=== PATIENT | male | born 1930 | race Caucasian/White ===

== ENCOUNTER 2016-09-02 17:27 | Observation (INO) | payer MEDICARE, BC ==
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
[2016-09-02] MEDS ORDERED: BABY ASPIRIN 81 MG CHEW PO ONE ×2 (18:09→18:23)
[2016-09-02] MEDS ORDERED: BABY ASPIRIN 81 MG CHEW ONE (18:15)
[2016-09-02 18:38] LABS: BASOPHIL % 0.2 % (0.0-0.4); Eosinophil % 0.1 % (0.00-5.0); Granulocytes % 88.4 % (36.0-66.0); Lymphocytes % 5.7 % (24.0-44.0); Mean Corpuscular Hemoglobin 32.7 pg (26-32); Mean Platelet Volume 9.4 fl (6-9.5); Monocytes % 5.6 % (0.0-12.0); Platelet Count 239 K/mm3 (150-450); Red Cell Distribution Width 12.9 % (11.5-14.0); White Blood Count 11.4 K/mm3 (4.0-10.5)
[2016-09-02 18:40] LABS: ANION GAP 11.3 MEQ/L (5-15); BLOOD UREA NITROGEN 19 mg/dL (9-20); CHLORIDE 106 mEq/L (98-107); Glucose 139 MG/DL (70-110); Potassium 3.5 mEq/L (3.5-5.1); SODIUM 142 mEq/L (136-145)
[2016-09-03] MEDS: TYLENOL 325 MG PO PRN ×2 (08:41→12:26)
--- NOTE | 2016-09-03 08:45 | XRAY ---
Indication: Amnesia. Multiple contiguous axial images obtained through the head without contrast. Comparison: October 29, 2013 Stable age-appropriate global atrophy and minimal periventricular degenerative micro-ischemia bilaterally. No acute intracranial hemorrhage, abnormal extra-axial fluid collection, or mass effect. Fourth ventricle is midline without hydrocephalus. Bony calvarium intact. Visualized paranasal sinuses and mastoid air cells are pneumatized and clear. Impression: Stable nonacute senile brain. Comment: Preliminary interpretation was made by [facility]. No discrepancy. CT DI is 68.15
--- NOTE | 2016-09-03 08:47 | XRAY ---
Indication: Syncope. Comparison: October 29, 2013 PA/lateral chest remains hyperinflated. Minimal left costophrenic angle atelectasis/scarring. No focal infiltrate, consolidation, or large effusion. Heart and mediastinal structures stable and within normal limits. Bony thorax intact again with mild osteopenia and degenerative changes. Impression: Nonacute hyperinflated chest with chronic features.
[2016-09-03] MEDS ORDERED: Sodium Chloride 0.9% 10 ML FLUSH Syringe IV PRN (09:49)
[2016-09-03] MEDS ORDERED: FLUZONE HIGH-DOSE 2016-17 SYR IM ONE (10:00)
--- NOTE | 2016-09-03 10:21 | XRAY ---
Indication: Syncope. Two-dimensional sonogram and color Doppler imaging of the carotid arteries of the neck performed. Comparison: October 30, 2013 Examination of the right carotid circulation demonstrates stable minimal heterogeneous plaquing at the level of the bulb extending into the origin of the internal and external carotid arteries. There is now mild focal calcified plaquing in the distal internal carotid artery. PSV of the CCA is 73 cm/s. PSV of the ICA is 70 cm/s. ICA/CCA ratio is 1.0. Normal antegrade vertebral artery flow. Examination of the left carotid circulation demonstrates stable minimal heterogeneous plaquing at the level of the bulb extending into the origin of the internal and external carotid arteries. Stable focal heterogeneous plaquing in the distal internal carotid artery. PSV of the CCA is 100 cm/s. PSV of the ICA is 77 cm/s. ICA/CCA ratio 0.8. Normal antegrade vertebral artery flow. Impression: Again scattered plaquing in both carotid circulation as detailed similar in appearance to the previous study. Velocity measurements and ratios again negative for hemodynamically significant flow-limiting stenosis.
[2016-09-03 11:42] VITALS: BP 131/75; PULSE 67; O2SAT 95
[2016-09-03] MEDS ORDERED: MOTRIN 400 MG PO PRN (12:27)
--- NOTE | 2016-09-03 13:52 | PCM.DCORD ---
- Discharge Discharge Date: 09/03/16 Condition: Good Medications: Home Medications Finasteride 5 mg [Proscar 5 MG] 5 mg PO DAILY 10/29/13 [Confirmed 09/02/16 ] Hydrochlorothiazide 25 mg [hydroDIURIL 25 MG] 25 mg PO DAILY 10/29/13 [ Confirmed 09/02/16] Active Inpatient Medications Acetaminophen (Tylenol 325 Mg) 650 mg PO Q4H PRN PRN PRN Reason: PAIN AND/OR FEVER Stop: 10/02/16 20:29 Last Admin: 09/03/16 12:26 Dose: 650 mg Ibuprofen (Motrin 400 Mg) 400 mg PO QID PRN PRN PRN Reason: PAIN Stop: 10/03/16 12:26 Sodium Chloride (Sodium Chloride 0.9% 10 Ml Flush Syringe) 10 ml IV Q8HT THOMPSON Stop: 10/03/16 13:59 Sodium Chloride (Sodium Chloride 0.9% 10 Ml Flush Syringe) 10 ml IV PRN PRN PRN Reason: FLUSH Stop: 10/03/16 09:48 Follow up with: SUSAN BRITTON [Primary Care Provider] - 09/10/16 1:30 pm
[2016-09-03] MEDS ORDERED: Sodium Chloride 0.9% 10 ML FLUSH Syringe IV SCH (14:00)
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
== END 2016-09-03 14:35 | disposition home or self-care (01) ==
LOC: ED 17:27 → MED SURG 20:29
PROVIDERS: ADMIT Family Medicine; ATTEND Family Medicine
DX: R55 Syncope and collapse (principal)
CPT/HCPCS: 36000; 36415; 70450; 71020; 80048; 81002; 84484; 85025; 93005; 93268; 93880; 96360; 99284; G0378

== ENCOUNTER 2020-05-15 12:51 | Emergency (ER) | payer MEDICARE, BC ==
--- NOTE | 2020-05-15 13:00 | ERPHSYRPT ---
- History of Present Illness Time Seen by Provider: 05/15/20 13:00 Source: patient Exam Limitations: no limitations Physician History: This is an 89-year-old white male with a history of hypertension presents with fever, runny nose, nausea and mild cough. He has not been exposed to anyone with known COVID 19+ test results. Symptoms began today. Fever Severity: moderate Associated Symptoms: cough, nausea/vomiting (Nausea but no vomiting), rhinorrhea Allergies/Adverse Reactions: No Known Drug Allergies Allergy (Verified 09/02/16 17:50) Home Medications: Hydrochlorothiazide 25 mg [hydroDIURIL 25 MG] 25 mg PO DAILY 10/29/13 [History] Aspirin [Aspirin EC] 81 mg PO DAILY 05/15/20 [History] Donepezil HCl 10 mg PO DAILY 05/15/20 [History] Finasteride 1 tab PO DAILY 05/15/20 [History] Hx Tetanus, Diphtheria Vaccination/Date Given: Yes Hx Influenza Vaccination/Date Given: No Hx Pneumococcal Vaccination/Date Given: No Travel Risk - International Travel Have you traveled outside of the country in past 3 weeks: No - Coronavirus Screening Are you exhibiting any of the following symptoms?: No Close contact with a COVID-19 positive Pt in past 14-21 Days: No - Review of Systems Constitutional: Fever Eyes: No Symptoms Ears, Nose, & Throat: Nose Discharge (Ear) Respiratory: Cough (Old) Cardiac: No Symptoms, No Chest Pain Abdominal/Gastrointestinal: Nausea, No Abdominal Pain, No Vomiting, No Diarrhea Genitourinary Symptoms: No Symptoms Musculoskeletal: No Symptoms Skin: No Symptoms Neurological: No Symptoms Psychological: No Symptoms Endocrine: No Symptoms Hematologic/Lymphatic: No Symptoms Immunological/Allergic: No Symptoms All Other Systems: Reviewed and Negative - Past Medical History Pertinent Past Medical History: Yes Neurological History: No Pertinent History ENT History: No Pertinent History Cardiac History: No Pertinent History Respiratory History: No Pertinent History Endocrine Medical History: No Pertinent History Musculoskeletal History: No Pertinent History GI Medical History: No Pertinent History History: Bladder Cancer Psycho-Social History: No Pertinent History Male Reproductive Disorders: Prostate Problems Other Medical History: SKIN CA - Past Surgical History Past Surgical History: No Neuro Surgical History: No Pertinent History Cardiac: No Pertinent History Respiratory: No Pertinent History Gastrointestinal: No Pertinent History Genitourinary: No Pertinent History Musculoskeletal: No Pertinent History Male Surgical History: No Pertinent History Other Surgical History: 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 ET SEVERAL OTHER PLACES THROUGHOUT THE YEARS - Social History Smoking Status: Former smoker Exposure to second hand smoke: No Drug Use: none Patient Lives Alone: No - Nursing Vital Signs Nursing Vital Signs: Initial Vital Signs Temperature 100.8 F 05/15/20 12:59 Pulse Rate 111 H 05/15/20 12:59 Respiratory Rate 38 H 05/15/20 12:59 Blood Pressure 110/67 05/15/20 12:59 O2 Sat by Pulse Oximetry 90 L 05/15/20 12:59 Pain Scale Pain Intensity 0 - Physical Exam General Appearance: no apparent distress, alert Eye Exam: PERRL/EOMI, eyes nml inspection ENT Exam: normal ENT inspection, no apparent trauma, hearing grossly normal, TMs normal, pharynx normal Neck Exam: normal inspection, non-tender, supple, full range of motion, trachea midline Respiratory Exam: normal breath sounds, chest non-tender, lungs clear, no respiratory distress, no accessory muscle use Cardiovascular/Chest Exam: tachycardia Gastrointestinal/Abdominal Exam: soft, non tender, no distention, no mass, no guarding Rectal Exam: not done Extremity Exam: non-tender, normal range of motion, normal inspection, no pedal edema, pelvis stable Neurologic Exam: alert, oriented x 3, cooperative, media reporter II-XII nml as tested, normal mood/affect, nml cerebellar function, nml station & gait, sensation nml Skin Exam: normal color, warm, dry Lymphatic: No adenopathy SpO2 Interpretation: normal O2 Delivery: Room Air - Course Nursing assessment & vital signs reviewed: Yes EKG Interpreted by Me: RATE ([id number]), Sinus Rhythm, NORMAL AXIS, NORMAL INTERVALS, NORMAL QRS, Non-specific ST Changes Ordered Tests: Active Orders 24 hr Category Date Time Status Manager Route STAT Care 05/15/20 13:14 Active EKG-ER Only STAT Care 05/15/20 13:13 Active IV Insertion STAT Care 05/15/20 13:13 Active Isolation, Initiate & Maintain STAT Care 05/15/20 13:16 Active CHEST 1 VIEW (PORTABLE) Stat Exams 05/15/20 13:14 Completed BLOOD CULTURE Stat Lab 05/15/20 13:50 Received CBC W DIFF Stat Lab 05/15/20 13:15 Completed CMP Stat Lab 05/15/20 13:15 Completed Ferritin Stat Lab 05/15/20 13:15 Completed LDH-LACTATE DEHYDROGENASE Stat Lab 05/15/20 13:15 Completed Lactic Acid Stat Lab 05/15/20 13:30 Completed Lactic Acid Stat Lab 05/15/20 15:33 Completed [place] Screen Stat Lab 05/15/20 13:15 Completed UA W/RFX UR CULTURE Stat Lab 05/15/20 14:02 Completed Medication Summary Generic Name Dose Route Start Last Admin Trade Name Freq PRN Reason Stop Dose Admin Sodium Chloride 1,000 mls @ 50 mls/hr 05/15/20 13:15 05/15/20 14:40 Sodium Chloride 0.9% 1000 Ml IV 06/14/20 13:14 50 mls/hr .Q20H [place] Administration Discontinued Medications Generic Name Dose Route Start Last Admin Trade Name Freq PRN Reason Stop Dose Admin Acetaminophen 650 mg 05/15/20 13:13 05/15/20 13:24 Tylenol 325 Mg PO 05/15/20 13:14 650 mg STAT STA Administration Acetaminophen Confirm 05/15/20 13:20 Tylenol 325 Mg Administered 05/15/20 13:21 Dose 650 mg .ROUTE .STK-MED ONE Sodium Chloride 500 mls @ 500 mls/hr 05/15/20 13:15 05/15/20 14:28 Sodium Chloride 0.9% 500 Ml IV 05/15/20 14:14 Infused .Q1H ONE Infusion Sodium Chloride Confirm 05/15/20 13:20 Sodium Chloride 0.9% 500 Ml Administered 05/15/20 13:21 Dose 500 mls @ ud IV .STK-MED ONE Ondansetron HCl 4 mg 05/15/20 13:13 05/15/20 13:24 Zofran 4 Mg/2 Ml Vial IV 05/15/20 13:14 4 mg STAT STA Administration Ondansetron HCl Confirm 05/15/20 13:20 Zofran 4 Mg/2 Ml Vial Administered 05/15/20 13:21 Dose 4 mg .ROUTE .STK-MED ONE Lab/Rad Data: Laboratory Result Diagrams 05/15/20 13:15 05/15/20 13:15 Laboratory Results 05/15/20 05/15/20 05/15/20 Range/Units 15:33 14:02 13:50 WBC (4.0-10.5) K/mm3 RBC (4.1-5.6) M/mm3 Hgb (12.5-18.0) gm/dl Hct (42-50) % MCV (78-100) fl MCH (26-32) pg MCHC (32-36) g/dl RDW (11.5-14.0) % Plt Count (150-450) K/mm3 MPV (7.5-11.0) fl Gran % (36.0-66.0) % Eos # (Auto) (0-0.5) Absolute Lymphs (auto) (1.0-4.6) Absolute Monos (auto) (0.0-1.3) Lymphocytes % (24.0-44.0) % Monocytes % (0.0-12.0) % Eosinophils % (0.00-5.0) % Basophils % (0.0-0.4) % Absolute Granulocytes (1.4-6.9) Basophils # (0-0.4) Sodium (137-145) mmol/L Potassium (3.5-5.1) mmol/L Chloride (98-107) mmol/L Carbon Dioxide (22-30) mmol/L Anion Gap (5-15) MEQ/L BUN (9-20) mg/dL Creatinine (0.66-1.25) mg/dL Estimated GFR ML/MIN Glucose (74-106) mg/dL Lactic Acid 1.0 (0.4-2.0) Calcium (8.4-10.2) mg/dL Ferritin (17.9-464) ng/mL Total Bilirubin (0.2-1.3) mg/dL AST (17-59) U/L ALT (0-50) U/L Alkaline Phosphatase (38-126) U/L Lactate Dehydrogenase (120-246) U/L Serum Total Protein (6.3-8.2) g/dL Albumin (3.5-5.0) g/dL Urine Color YELLOW (YELLOW) Urine Appearance CLEAR (CLEAR) Urine pH 5.0 (5-6) Ur Specific [place] 1.012 (1.005-1.025) Urine Protein NEGATIVE (Negative) Urine Ketones NEGATIVE (NEGATIVE) Urine Blood NEGATIVE (0-5) Jamir/ul Urine Nitrite NEGATIVE (NEGATIVE) Urine Bilirubin NEGATIVE (NEGATIVE) Urine Urobilinogen NEGATIVE (0-1) mg/dL Ur Leukocyte Esterase NEGATIVE (NEGATIVE) Urine WBC (Auto) NONE (0-5) /HPF Urine RBC (Auto) 0-2 (0-2) /HPF U Epithel Cells (Auto) NONE (FEW) /HPF Urine Bacteria (Auto) NONE (NEGATIVE) /HPF Urine Mucus (Auto) SLIGHT (NEGATIVE) /HPF Urine Culture Reflexed NO (NO) Urine Glucose NEGATIVE (NEGATIVE) mg/dL Monoscreen (Negative) Influenza Type A Ag NEGATIVE (NEGATIVE) Influenza Type B Ag NEGATIVE (NEGATIVE) RSV (PCR) NEGATIVE (Negative) Group A Strep Antibody NOT DETECTED (NEGATIVE) 05/15/20 05/15/20 05/15/20 Range/Units 13:30 13:15 13:15 WBC (4.0-10.5) K/mm3 RBC (4.1-5.6) M/mm3 Hgb (12.5-18.0) gm/dl Hct (42-50) % MCV (78-100) fl MCH (26-32) pg MCHC (32-36) g/dl RDW (11.5-14.0) % Plt Count (150-450) K/mm3 MPV (7.5-11.0) fl Gran % (36.0-66.0) % Eos # (Auto) (0-0.5) Absolute Lymphs (auto) (1.0-4.6) Absolute Monos (auto) (0.0-1.3) Lymphocytes % (24.0-44.0) % Monocytes % (0.0-12.0) % Eosinophils % (0.00-5.0) % Basophils % (0.0-0.4) % Absolute Granulocytes (1.4-6.9) Basophils # (0-0.4) Sodium (137-145) mmol/L Potassium (3.5-5.1) mmol/L Chloride (98-107) mmol/L Carbon Dioxide (22-30) mmol/L Anion Gap (5-15) MEQ/L BUN (9-20) mg/dL Creatinine (0.66-1.25) mg/dL Estimated GFR ML/MIN Glucose (74-106) mg/dL Lactic Acid 2.6 H (0.4-2.0) Calcium (8.4-10.2) mg/dL Ferritin 22.0 (17.9-464) ng/mL Total Bilirubin (0.2-1.3) mg/dL AST (17-59) U/L ALT (0-50) U/L Alkaline Phosphatase (38-126) U/L Lactate Dehydrogenase (120-246) U/L Serum Total Protein (6.3-8.2) g/dL Albumin (3.5-5.0) g/dL Urine Color (YELLOW) Urine Appearance (CLEAR) Urine pH (5-6) Ur Specific [place] (1.005-1.025) Urine Protein (Negative) Urine Ketones (NEGATIVE) Urine Blood (0-5) Jamir/ul Urine Nitrite (NEGATIVE) Urine Bilirubin (NEGATIVE) Urine Urobilinogen (0-1) mg/dL Ur Leukocyte Esterase (NEGATIVE) Urine WBC (Auto) (0-5) /HPF Urine RBC (Auto) (0-2) /HPF U Epithel Cells (Auto) (FEW) /HPF Urine Bacteria (Auto) (NEGATIVE) /HPF Urine Mucus (Auto) (NEGATIVE) /HPF Urine Culture Reflexed (NO) Urine Glucose (NEGATIVE) mg/dL Monoscreen NEGATIVE (Negative) Influenza Type A Ag (NEGATIVE) Influenza Type B Ag (NEGATIVE) RSV (PCR) (Negative) Group A Strep Antibody (NEGATIVE) 05/15/20 05/15/20 05/15/20 Range/Units 13:15 13:15 13:15 WBC 5.2 (4.0-10.5) K/mm3 RBC 4.00 L (4.1-5.6) M/mm3 Hgb 13.5 (12.5-18.0) gm/dl Hct 40.3 L (42-50) % MCV 100.8 H (78-100) fl MCH 33.8 H (26-32) pg MCHC 33.5 (32-36) g/dl RDW 13.0 (11.5-14.0) % Plt Count 240 (150-450) K/mm3 MPV 9.1 (7.5-11.0) fl Gran % 87.9 H (36.0-66.0) % Eos # (Auto) 0.03 (0-0.5) Absolute Lymphs (auto) 0.48 L (1.0-4.6) Absolute Monos (auto) 0.11 (0.0-1.3) Lymphocytes % 9.2 L (24.0-44.0) % Monocytes % 2.1 (0.0-12.0) % Eosinophils % 0.6 (0.00-5.0) % Basophils % 0.2 (0.0-0.4) % Absolute Granulocytes 4.56 (1.4-6.9) Basophils # 0.01 (0-0.4) Sodium 136 L (137-145) mmol/L Potassium 3.8 (3.5-5.1) mmol/L Chloride 104 (98-107) mmol/L Carbon Dioxide 22 (22-30) mmol/L Anion Gap 13.3 (5-15) MEQ/L BUN 22 H (9-20) mg/dL Creatinine 1.20 (0.66-1.25) mg/dL Estimated GFR > 60.0 ML/MIN Glucose 105 (74-106) mg/dL Lactic Acid (0.4-2.0) Calcium 9.4 (8.4-10.2) mg/dL Ferritin (17.9-464) ng/mL Total Bilirubin 0.90 (0.2-1.3) mg/dL AST 31 (17-59) U/L ALT 12 (0-50) U/L Alkaline Phosphatase 59 (38-126) U/L Lactate Dehydrogenase 205 (120-246) U/L Serum Total Protein 7.5 (6.3-8.2) g/dL Albumin 4.3 (3.5-5.0) g/dL Urine Color (YELLOW) Urine Appearance (CLEAR) Urine pH (5-6) Ur Specific [place] (1.005-1.025) Urine Protein (Negative) Urine Ketones (NEGATIVE) Urine Blood (0-5) Jamir/ul Urine Nitrite (NEGATIVE) Urine Bilirubin (NEGATIVE) Urine Urobilinogen (0-1) mg/dL Ur Leukocyte Esterase (NEGATIVE) Urine WBC (Auto) (0-5) /HPF Urine RBC (Auto) (0-2) /HPF U Epithel Cells (Auto) (FEW) /HPF Urine Bacteria (Auto) (NEGATIVE) /HPF Urine Mucus (Auto) (NEGATIVE) /HPF Urine Culture Reflexed (NO) Urine Glucose (NEGATIVE) mg/dL Monoscreen (Negative) Influenza Type A Ag (NEGATIVE) Influenza Type B Ag (NEGATIVE) RSV (PCR) (Negative) Group A Strep Antibody (NEGATIVE) - Progress Progress: improved, re-examined Progress Note: 05/15/20 16:50 Chest x-ray shows no acute pulmonary process. 05/15/20 17:00 Patient states that he feels great. He has no chest pain he is not short of breath. He wants to go home. His work-up does not show anything acute at this time other than his fever was elevated and his room air oxygenation was 93 at the time of discharge. His temperature was improved down to 99 F. Counseled pt/family regarding: lab results, diagnosis, need for follow-up, rad results - Departure Departure Disposition: Home Clinical Impression: Fever, Rhinorrhea Condition: Stable Critical Care Time: No Referrals: SUSAN BRITTON [Primary Care Provider] - Additional Instructions: Drink plenty of fluids. Use Tylenol and ibuprofen if not allergic or contraindicated for fever control. Return to the emergency department if your symptoms worsen. Follow-up with your primary care physician on an as-needed basis. Quarantine yourself until the results of the COVID-19 test return
[2020-05-15] MEDS ORDERED: Zofran 4 MG/2 ML VIAL IV STA (13:13)
[2020-05-15] MEDS ORDERED: TYLENOL 325 MG PO STA (13:13)
[2020-05-15] MEDS ORDERED: Sodium Chloride 0.9% 500 ML 500 ML IV ONE ×2 (13:15→13:20)
[2020-05-15] MEDS ORDERED: Sodium Chloride 0.9% 1000 ML 1,000 ML IV SCH (13:15)
[2020-05-15] MEDS ORDERED: Zofran 4 MG/2 ML VIAL ONE (13:20)
[2020-05-15] MEDS ORDERED: TYLENOL 325 MG ONE (13:20)
--- NOTE | 2020-05-15 13:52 | XRAY ---
Indication: Fever, chills, and shakes. Comparison: September 02, 2016. Portable apical lordotic chest remains hyperinflated and clear. Heart and mediastinal structures within normal limits. Descending aorta remains tortuous. Bony thorax intact again with mild osteopenia and degenerative changes. Impression: Continued nonacute hyperinflated chest with chronic features.
[2020-05-15 14:07] LABS: Absolute Neutrophil Ct (ANC) 4.56 (1.4-6.9); BASOPHIL % 0.2 % (0.0-0.4); Basophil (Absolute #) 0.01 (0-0.4); Eosinophil % 0.6 % (0.00-5.0); Eosinophil (Absolute #) 0.03 (0-0.5); Hematocrit 40.3 % (42-50); Hemoglobin 13.5 gm/dl (12.5-18.0); Lymphocyte (Absolute #) 0.48 (1.0-4.6); Lymphocytes % 9.2 % (24.0-44.0); Mean Cell Volume 100.8 fl (78-100); Mean Corpuscular Hemoglobin 33.8 pg (26-32); Mean Corpuscular Hgb Concent. 33.5 g/dl (32-36); Mean Platelet Volume 9.1 fl (7.5-11.0); Monocyte (Absolute #) 0.11 (0.0-1.3); Monocytes % 2.1 % (0.0-12.0); Neutrophil % 87.9 % (36.0-66.0); Platelet Count 240 K/mm3 (150-450); White Blood Count 5.2 K/mm3 (4.0-10.5)
[2020-05-15 14:22] LABS: ALBUMIN 4.3 g/dL (3.5-5.0); ALKALINE PHOSPHATASE 59 U/L (38-126); ANION GAP 13.3 MEQ/L (5-15); BLOOD UREA NITROGEN 22 mg/dL (9-20); CHLORIDE 104 mmol/L (98-107); Calcium 9.4 mg/dL (8.4-10.2); Carbon Dioxide 22 mmol/L (22-30); EST GLOMERULAR FILTRATION RATE > 60.0 ML/MIN; Glucose 105 mg/dL (74-106); Potassium 3.8 mmol/L (3.5-5.1); SGOT/AST 31 U/L (17-59); SGPT/ALT 12 U/L (0-50); SODIUM 136 mmol/L (137-145); Total Protein 7.5 g/dL (6.3-8.2)
[2020-05-15 14:29] LABS: Appearance CLEAR (CLEAR); Bilirubin NEGATIVE (NEGATIVE); Blood NEGATIVE Ery/ul (0-5); Glucose NEGATIVE (NEGATIVE); Ketones NEGATIVE (NEGATIVE); Leukocyte Esterase NEGATIVE (NEGATIVE); Mucus SLIGHT /HPF (NEGATIVE); Nitrite NEGATIVE (NEGATIVE); Protein,Urine Dip NEGATIVE (Negative); RBC 0-2 /HPF (0-2); Specific Gravity 1.012 (1.005-1.025); Urobilinogen NEGATIVE mg/dL (0-1)
[2020-05-15 14:33] LABS: Group A Strep NOT DETECTED (NEGATIVE)
[2020-05-15] MEDS ORDERED: Sodium Chloride 0.9% 1000 ML 1,000 ML ONE (14:39)
[2020-05-15 14:42] LABS: INFLUENZA A NEGATIVE (NEGATIVE); INFLUENZA B NEGATIVE (NEGATIVE); RESPIRATORY SYNCTIAL VIRUS NEGATIVE (Negative)
[2020-05-15 17:04] VITALS: BP 105/52; PULSE 88; O2SAT 91
[2020-05-15 17:51] LABS: Slide Review 1 YES
== END 2020-05-15 17:41 | disposition home or self-care (01) ==
LOC: ED 12:51
DX: R50.9 Fever, unspecified (principal); J34.89 Other specified disorders of nose and nasal sinuses
CPT/HCPCS: 36000; 36415; 71045; 80053; 81001; 82728; 83605; 83615; 85025; 86308; 87040; 87631; 87651; 93005; 93041; 96360; 96361; 96374; 99285; U0003; J2405; A9270-GY

== ENCOUNTER 2020-12-21 14:23 | Emergency (ER) | payer MEDICARE, BC ==
[2020-12-21] MEDS ORDERED: Compazine 10 MG/2 ML IV ONE (14:40)
[2020-12-21] MEDS ORDERED: VALIUM 10 MG/2 ML SYRINGE IV ONE (14:40)
[2020-12-21] MEDS ORDERED: Compazine 10 MG/2 ML ONE (14:53)
[2020-12-21] MEDS ORDERED: VALIUM 10 MG/2 ML SYRINGE ONE (14:53)
[2020-12-21 15:20] LABS: Absolute Neutrophil Ct (ANC) 4.54 (1.4-6.9); BASOPHIL % 0.5 % (0.0-0.4); Basophil (Absolute #) 0.03 (0-0.4); Eosinophil % 0.6 % (0.00-5.0); Eosinophil (Absolute #) 0.04 (0-0.5); Hematocrit 42.7 % (42-50); Hemoglobin 14.2 gm/dl (12.5-18.0); Lymphocyte (Absolute #) 1.19 (1.0-4.6); Lymphocytes % 19.1 % (24.0-44.0); Mean Cell Volume 100.2 fl (78-100); Mean Corpuscular Hemoglobin 33.3 pg (26-32); Mean Corpuscular Hgb Concent. 33.3 g/dl (32-36); Monocyte (Absolute #) 0.44 (0.0-1.3); Monocytes % 7.1 % (0.0-12.0); Neutrophil % 72.7 % (36.0-66.0); Platelet Count 292 K/mm3 (150-450); Red Blood Count 4.26 M/mm3 (4.1-5.6); Red Cell Distribution Width 12.8 % (11.5-14.0); White Blood Count 6.2 K/mm3 (4.0-10.5)
[2020-12-21 15:32] LABS: ALBUMIN 4.3 g/dL (3.5-5.0); ALKALINE PHOSPHATASE 59 U/L (38-126); ANION GAP 10.2 MEQ/L (5-15); BLOOD UREA NITROGEN 18 mg/dL (9-20); CHLORIDE 100 mmol/L (98-107); Calcium 9.9 mg/dL (8.4-10.2); Carbon Dioxide 31 mmol/L (22-30); Creatinine 1 1.18 mg/dL (0.66-1.25); EST GLOMERULAR FILTRATION RATE > 60.0 ML/MIN; Glucose 134 mg/dL (74-106); Potassium 3.6 mmol/L (3.5-5.1); SGOT/AST 35 U/L (17-59); SGPT/ALT 13 U/L (0-50); SODIUM 138 mmol/L (137-145); Total Protein 7.9 g/dL (6.3-8.2)
[2020-12-21 15:57] LABS: Erythrocyte Sedimentation Rate 6 mm/hr (0-15)
--- NOTE | 2020-12-21 16:26 | ERPHSYRPT ---
- History of Present Illness Time Seen by Provider: 12/21/20 14:45 Source: patient Exam Limitations: no limitations Patient Subjective Stated Complaint: dizziness Triage Nursing Assessment: Patient brought back to ED via w/c and transferred self to bed. Patient A+O X3. Patient's skin pink, warm and dry. Patient complains of becoming dizzy at 0200 and has been dizzy since. Patient complains of nausea but no vomiting. Patient denies pain or discomfort. Physician History: Patient is an 89-year-old male who presents with a sudden onset of profound vertigo at 2 AM today. He has episodes of intense vertigo sweating nausea and vomiting. He does have a history of similar episodes like this for the past 6 months and his son reports that his balance has been deteriorating fairly rapidly. Patient denies any chest pain headache unilateral weakness or loss of sensation. Timing/Duration: today Severity: severe Deficits: off balance Baseline/Normal Cognition: alert oriented x 3 Current Cognition: alert oriented x 3 Baseline Gait: walks w/o assistance Associated Symptoms: nausea, vomiting Allergies/Adverse Reactions: No Known Drug Allergies Allergy (Verified 12/21/20 14:36) Home Medications: Hydrochlorothiazide 25 mg [hydroDIURIL 25 MG] 25 mg PO DAILY 10/29/13 [History] Aspirin [Aspirin EC] 81 mg PO DAILY 05/15/20 [History] Donepezil HCl 10 mg PO DAILY 05/15/20 [History] Finasteride 1 tab PO DAILY 05/15/20 [History] Hx Tetanus, Diphtheria Vaccination/Date Given: Yes Hx Influenza Vaccination/Date Given: Yes Hx Pneumococcal Vaccination/Date Given: No Immunizations Up to Date: Yes Travel Risk - International Travel Have you traveled outside of the country in past 3 weeks: No - Coronavirus Screening Are you exhibiting any of the following symptoms?: No Close contact with a COVID-19 positive Pt in past 14-21 Days: No - Vaccine Status Have you recieved a Covid-19 vaccination: Yes 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 - Vaccination Dates Date of 2cond Vaccination (if applicable): unknown Dates if Unknown: unknown of dates - Review of Systems Constitutional: No Fever, No Chills Eyes: No Symptoms Ears, Nose, & Throat: No Symptoms Respiratory: No Cough, No Dyspnea Cardiac: No Chest Pain, No Edema, No Syncope Abdominal/Gastrointestinal: Nausea, Vomiting, No Abdominal Pain, No Diarrhea Genitourinary Symptoms: No Dysuria Musculoskeletal: No Back Pain, No Neck Pain Skin: No Rash Neurological: Dizziness, Vertigo, No Focal Weakness, No Sensory Changes Psychological: No Symptoms Endocrine: No Symptoms Hematologic/Lymphatic: No Symptoms Immunological/Allergic: No Symptoms All Other Systems: Reviewed and Negative - Past Medical History Pertinent Past Medical History: Yes Neurological History: No Pertinent History ENT History: No Pertinent History Cardiac History: No Pertinent History Respiratory History: No Pertinent History Endocrine Medical History: No Pertinent History Musculoskeletal History: No Pertinent History GI Medical History: No Pertinent History History: Bladder Cancer Psycho-Social History: No Pertinent History Male Reproductive Disorders: Prostate Problems Other Medical History: SKIN CA - Past Surgical History Past Surgical History: No Neuro Surgical History: No Pertinent History Cardiac: No Pertinent History Respiratory: No Pertinent History Gastrointestinal: No Pertinent History Genitourinary: No Pertinent History Musculoskeletal: No Pertinent History Male Surgical History: No Pertinent History Other Surgical History: 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 ET SEVERAL OTHER PLACES THROUGHOUT THE YEARS - Social History Smoking Status: Former smoker Exposure to second hand smoke: No Drug Use: none Patient Lives Alone: No - Nursing Vital Signs Nursing Vital Signs: Initial Vital Signs Temperature 97.6 F 12/21/20 14:37 Pulse Rate 63 12/21/20 14:37 Respiratory Rate 18 12/21/20 14:37 Blood Pressure 163/115 12/21/20 14:37 O2 Sat by Pulse Oximetry 97 12/21/20 14:37 Pain Scale Pain Intensity 0 - [place] Coma Scale Best Eye Response ([place]): (4) open spontaneously Best Verbal Response ([place]): (5) oriented Best Motor Response ([place]): (6) obeys commands Stewart Total: 15 - Physical Exam General Appearance: no apparent distress, alert Eye Exam: bilateral eye: PERRL, EOMI (Segments noted with change in head position especially with patient supine and head to the left) Ears, Nose, Throat Exam: normal ENT inspection, moist mucous membranes Neck Exam: normal inspection, non-tender, supple Respiratory: normal breath sounds, lungs clear, airway intact, No respiratory distress Cardiovascular: regular rate/rhythm, No edema Gastrointestinal: soft, No tenderness, No distention Back Exam: normal inspection Extremity Exam: normal inspection, No pedal edema 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, oriented x 3 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: tongue midline Coordination/Gait: normal finger to nose, normal gait, normal cerebellar function Motor/Sensory: no motor deficit Skin Exam: normal color, warm, dry, No rash SpO2 Interpretation: normal SpO2: 97 O2 Delivery: Room Air - Course Nursing assessment & vital signs reviewed: Yes EKG Interpreted by Me: RATE (54), Sinus Rhythm, NORMAL AXIS, NORMAL INTERVALS, NORMAL QRS - CT Exams Head CT Interpretation: Tele-radiologist Report Ordered Tests: Active Orders 24 hr Category Date Time Status EKG-ER Only STAT Care 12/21/20 14:38 Active CHEST 1 VIEW (PORTABLE) Stat Exams 12/21/20 14:39 Taken HEAD WITHOUT CONTRAST [CT] Stat Exams 12/21/20 14:37 Taken CBC W DIFF Stat Lab 12/21/20 14:47 Completed CMP Stat Lab 12/21/20 14:47 Completed Erythrocyte Sedimentation Rate Stat Lab 12/21/20 14:47 Completed Lactic Acid Urgent Lab 12/21/20 15:08 Completed TROPONIN Q3H Lab 12/21/20 14:47 Completed TROPONIN Q3H Lab 12/21/20 17:45 Ordered TROPONIN Q3H Lab 12/21/20 20:45 Ordered TROPONIN Q3H Lab 12/21/20 23:45 Ordered TROPONIN Q3H Lab 12/22/20 02:45 Ordered UA W/RFX UR CULTURE Stat Lab 12/21/20 14:38 Ordered Medication Summary Discontinued Medications Generic Name Dose Route Start Last Admin Trade Name Freq PRN Reason Stop Dose Admin Diazepam 2.5 mg 12/21/20 14:40 12/21/20 14:55 Valium 10 Mg/2 Ml Syringe IV 12/21/20 14:41 2.5 mg STAT ONE Administration Diazepam Confirm 12/21/20 14:53 Valium 10 Mg/2 Ml Syringe Administered 12/21/20 14:54 Dose 10 mg .ROUTE .STK-MED ONE Prochlorperazine Edisylate 5 mg 12/21/20 14:40 12/21/20 14:54 Compazine 10 Mg/2 Ml IV 12/21/20 14:41 5 mg STAT ONE Administration Prochlorperazine Edisylate Confirm 12/21/20 14:53 Compazine 10 Mg/2 Ml Administered 12/21/20 14:54 Dose 10 mg .ROUTE .STK-MED ONE Lab/Rad Data: Laboratory Result Diagrams 12/21/20 14:47 12/21/20 14:47 Laboratory Results 12/21/20 12/21/20 12/21/20 Range/Units 15:08 14:47 14:47 WBC (4.0-10.5) K/mm3 RBC (4.1-5.6) M/mm3 Hgb (12.5-18.0) gm/dl Hct (42-50) % MCV (78-100) fl MCH (26-32) pg MCHC (32-36) g/dl RDW (11.5-14.0) % Plt Count (150-450) K/mm3 MPV (7.5-11.0) fl Gran % (36.0-66.0) % Eos # (Auto) (0-0.5) Absolute Lymphs (auto) (1.0-4.6) Absolute Monos (auto) (0.0-1.3) Lymphocytes % (24.0-44.0) % Monocytes % (0.0-12.0) % Eosinophils % (0.00-5.0) % Basophils % (0.0-0.4) % Absolute Granulocytes (1.4-6.9) Basophils # (0-0.4) ESR (0-15) mm/hr Sodium 138 (137-145) mmol/L Potassium 3.6 (3.5-5.1) mmol/L Chloride 100 (98-107) mmol/L Carbon Dioxide 31 H (22-30) mmol/L Anion Gap 10.2 (5-15) MEQ/L BUN 18 (9-20) mg/dL Creatinine 1.18 (0.66-1.25) mg/dL Estimated GFR > 60.0 ML/MIN Glucose 134 H (74-106) mg/dL Lactic Acid 1.0 (0.4-2.0) Calcium 9.9 (8.4-10.2) mg/dL Total Bilirubin 0.80 (0.2-1.3) mg/dL AST 35 (17-59) U/L ALT 13 (0-50) U/L Alkaline Phosphatase 59 (38-126) U/L Troponin I < 0.012 (0.000-0.034) ng/mL Serum Total Protein 7.9 (6.3-8.2) g/dL Albumin 4.3 (3.5-5.0) g/dL 12/21/20 Range/Units 14:47 WBC 6.2 (4.0-10.5) K/mm3 RBC 4.26 (4.1-5.6) M/mm3 Hgb 14.2 (12.5-18.0) gm/dl Hct 42.7 (42-50) % MCV 100.2 H (78-100) fl MCH 33.3 H (26-32) pg MCHC 33.3 (32-36) g/dl RDW 12.8 (11.5-14.0) % Plt Count 292 (150-450) K/mm3 MPV 9.0 (7.5-11.0) fl Gran % 72.7 H (36.0-66.0) % Eos # (Auto) 0.04 (0-0.5) Absolute Lymphs (auto) 1.19 (1.0-4.6) Absolute Monos (auto) 0.44 (0.0-1.3) Lymphocytes % 19.1 L (24.0-44.0) % Monocytes % 7.1 (0.0-12.0) % Eosinophils % 0.6 (0.00-5.0) % Basophils % 0.5 (0.0-0.4) % Absolute Granulocytes 4.54 (1.4-6.9) Basophils # 0.03 (0-0.4) ESR 6 (0-15) mm/hr Sodium (137-145) mmol/L Potassium (3.5-5.1) mmol/L Chloride (98-107) mmol/L Carbon Dioxide (22-30) mmol/L Anion Gap (5-15) MEQ/L BUN (9-20) mg/dL Creatinine (0.66-1.25) mg/dL Estimated GFR ML/MIN Glucose (74-106) mg/dL Lactic Acid (0.4-2.0) Calcium (8.4-10.2) mg/dL Total Bilirubin (0.2-1.3) mg/dL AST (17-59) U/L ALT (0-50) U/L Alkaline Phosphatase (38-126) U/L Troponin I (0.000-0.034) ng/mL Serum Total Protein (6.3-8.2) g/dL Albumin (3.5-5.0) g/dL - Progress Progress: improved - Departure Departure Disposition: Home (Patient was offered a opportunity for admission and refused family members assure me they will be available for him to have assistance and prevent falls) Clinical Impression: Vertigo Condition: Stable Critical Care Time: No Referrals: SUSAN BRITTON [Primary Care Provider] - Instructions: Vertigo (a Type of Dizziness) (DC) Prescriptions: Meclizine HCl 25 mg [Antivert 25 mg] 25 mg PO TID 10 Days #30 tablet Diazepam 5 mg [Valium 5 MG] 2.5 mg PO TID PRN 7 Days #10 tablet PRN Reason: Nausea
[2020-12-21 16:42] VITALS: BP 141/90; PULSE 61; O2SAT 95
--- NOTE | 2020-12-21 22:18 | XRAY ---
Indication: Vertigo. Comparison: May 15, 2020. Portable chest remains hyperinflated and clear with new mild left hemidiaphragm elevation. Heart not enlarged again with tortuous descending aorta. Bony thorax intact again with mild osteopenia and degenerative changes. Impression: Nonacute chest with chronic features.
--- NOTE | 2020-12-21 22:24 | XRAY ---
Indication: Vertigo. Multiple contiguous axial images obtained through the head without contrast. Comparison: September 02, 2016. There remains age-appropriate global atrophy and mild periventricular degenerative micro-ischemia. Right vertex demonstrates a 1.8 cm meningioma now partially calcified. No acute intracranial hemorrhage, abnormal extra-axial fluid collection, or mass effect. Fourth ventricle is midline without hydrocephalus. Bony calvarium intact. Visualized paranasal sinuses and mastoid air cells are clear. Impression: 1. Small right vertex meningioma stable in size but now partially calcified. 2. Atrophy and degenerative micro-ischemia within normal limits for patient's age. 3. No acute intracranial abnormalities. Comment: Preliminary interpretation was made by [facility]. No critical discrepancy.
== END 2020-12-21 16:53 | disposition home or self-care (01) ==
LOC: ED 14:23
DX: R42 Dizziness and giddiness (principal)
CPT/HCPCS: 36415; 70450; 71045; 80053; 83605; 84484; 85025; 85652; 93005; 96374; 96375; 99284; J3360